=== PATIENT | male | born 1965 | race Caucasian/White ===

== ENCOUNTER → 2020-06-16 | Outpatient (REF) | payer BC ==
[~2020-06-16] MED LIST: AMLO1TAB24 PO; ATOR1TAB19 PO; LISI40TA PO; METF500T13 PO; PANT40TA29 PO; SULF1TAB93 PO; VITA50005 PO
[2020-06-16 16:48] LABS: BLOOD UREA NITROGEN 19 MG/DL (7-18); CALCIUM LEVEL 9.9 MG/DL (8.5-10.1); CARBON DIOXIDE LEVEL 30 MEQ/L (21-32); CHLORIDE LEVEL 102 MEQ/L (98-107); CREATININE FOR GFR 0.89 MG/DL (0.70-1.30); GLOMERULAR FILTRATION RATE > 60.0 (>56); GLUCOSE, FASTING 116 MG/DL (70-100); POTASSIUM SERUM 4.8 MEQ/L (3.5-5.1); SODIUM LEVEL 136 MEQ/L (136-145)
== END ==
LOC: M SFHCCLAY 11:15
PROVIDERS: ATTEND Family Medicine
DX: Z01.818 Encounter for other preprocedural examination (principal); I11.9 Hypertensive heart disease without heart failure

== ENCOUNTER → 2020-06-22 | Outpatient (CLI) | payer BC | LOC: M LABSMTC 10:11 | PROVIDERS: ATTEND Anesthesiology | DX: Z01.812 Encounter for preprocedural laboratory examination (principal); Z20.828 Contact with and (suspected) exposure to other viral communicable diseases | CPT/HCPCS: C9803; U0003 ==

== ENCOUNTER → 2020-06-25 | Outpatient (CLI) | payer BC | LOC: M LABSMTC 10:50 | PROVIDERS: ATTEND Ophthalmology | DX: Z01.818 Encounter for other preprocedural examination (principal) ==

== ENCOUNTER 2020-06-27 06:19 | Day surgery (SDC) | payer BC ==
[~2020-06-27] VITALS: Ht 175.3 cm; Wt 97.5 kg
[~2020-06-27 06:19] MED LIST changes: +ceFAZolin SOD 2 GM in IV 1 EA IV ONE
[2020-06-27] MEDS ORDERED: ceFAZolin 2 GM/D5W 50 ML IV BAG (J0690 PER 500MG) As Ordered ONE (06:41)
[2020-06-27] MEDS ORDERED: LIDOCAINE W/EPINEPHRINE 1% 20ML VIAL As Ordered ONE (07:08)
[2020-06-27] MEDS ORDERED: dexameTHASONE 4 MG/ML 1ML VIAL (J1100 PER 1MG) As Ordered ONE (07:17)
[2020-06-27] MEDS ORDERED: propofoL 200 MG/20 ML VIAL As Ordered ONE (07:17)
[2020-06-27] MEDS ORDERED: LIDOCAINE 2% 100MG/5ML SDV (FOR ANES.) As Ordered ONE (07:17)
[2020-06-27] MEDS ORDERED: fentaNYL 100 MCG/2 ML INJECTION (J3010) As Ordered ONE (07:17)
[2020-06-27] MEDS ORDERED: ONDANSETRON 4MG/2ML VIAL As Ordered ONE (07:17)
[2020-06-27] MEDS ORDERED: MIDAZOLAM INJ 2MG/2ML VIAL (J2250 PER 1MG) As Ordered ONE ×2 (07:17→07:34)
[2020-06-27] MEDS ORDERED: KETAMINE HCL 200 MG/20 ML VIAL As Ordered ONE (07:34)
[2020-06-27] MEDS ORDERED: LR 1,000 ML IV ONE (07:45)
[2020-06-27 09:00] VITALS: BP 159/82
--- NOTE | 2020-07-01 09:33 | RO ---
DATE OF OPERATION: 06/27/2020 PREOPERATIVE DIAGNOSIS: Back cyst x2 and right back lipoma. POSTOPERATIVE DIAGNOSIS: PROCEDURE: Excision of back cyst x2 and lipoma. SURGEON: Nile Emanuel DO ASSIST: None. ANESTHESIA: MAC with 17 mL of local. COMPLICATIONS: None. INDICATIONS FOR PROCEDURE: The patient is a 54-year-old male who presents to my office complaining of pain in the right mid back where he has a large lipoma. He also had a sebaceous cyst in the middle of his back that was inflamed and was infected at the time as well as another sebaceous cyst on the left upper posterior shoulder. I treated him with antibiotics for the infection and had him come in to the operating room to have all three of these removed at the same time. Risks and benefits of the procedure not limited to be including bleeding, infection, damage to surrounding structures, need for further surgery was discussed in detail with the patient, informed consent was obtained and procedure was planned. DESCRIPTION OF PROCEDURE: The patient was brought to the operating room #3. After intravenous sedation he was placed prone on the stretcher, the back was sterilely prepped and draped with Chlorhexidine. Time out was done to confirm patient and procedure. Following that all three lesions had local injected into the skin and subcutaneous tissue on top of them. Starting with the left posterior shoulder there was 2 cm cyst, it was excised with 15-blade scalpel used to make skin incision. Elliptical incision was carried around the cyst itself, the cyst was removed intact. Cautery was used to control hemostasis and then interrupted 3-0 nylon sutures were used to reapproximate the skin edges. That was the first lesion which was a 2 cm sebaceous cyst. Next in the middle of the back another elliptical incision was created with 15- blade scalpel. This incision was about 5 cm in length. Large inflamed 3.5 cm sebaceous cyst was also removed from there. Cautery again was used to control hemostasis and the skin edges were brought back together with 2-0 nylon sutures. For the lipoma a 15-blade scalpel was used to make a 5 cm incision over the top of it. Metzenbaum scissors were used to dissect into the capsule of the lipoma. It was a multilobulated lipoma that came out in multiple large pieces. Overall size was about 7 x 3 cm. Once the lipoma was completely removed the cavity was examined to make sure there was none remaining. Minimal bleeding was from this area. The skin edges were then reapproximated with interrupted 2-0 nylon sutures as well. Once this was completed the back was sterilely cleaned and dried, 4 x 4 tape applied. This ended the procedure. TOY
== END 2020-06-27 09:05 | disposition home or self-care (01) ==
LOC: M SDC 06:19
PROVIDERS: ATTEND Surgery
DX: D17.9 Benign lipomatous neoplasm, unspecified (principal); L72.3 Sebaceous cyst; E11.9 Type 2 diabetes mellitus without complications; I10 Essential (primary) hypertension; E78.5 Hyperlipidemia, unspecified; J44.9 Chronic obstructive pulmonary disease, unspecified; Z87.891 Personal history of nicotine dependence; G47.30 Sleep apnea, unspecified; Z79.899 Other long term (current) drug therapy
CPT/HCPCS: 11402; 11404; 11406; 88304; J0690; J1100; J2250; J2405; J3010

== ENCOUNTER → 2020-07-05 | Outpatient (CLI) | payer BC ==
[~2020-07-05] MED LIST changes: -ceFAZolin SOD 2 GM in IV 1 EA IV ONE
== END ==
LOC: M LABSMTC 09:01
PROVIDERS: ATTEND Anesthesiology
DX: Z01.812 Encounter for preprocedural laboratory examination (principal); Z20.828 Contact with and (suspected) exposure to other viral communicable diseases

== ENCOUNTER 2020-07-10 06:01 | Day surgery (SDC) | payer BC ==
[~2020-07-10] VITALS: Ht 175.3 cm; Wt 101.2 kg
[2020-07-10] MEDS ORDERED: DUOVISC (0.50ML VISCOAT/0.55ML PROVISC) OPHTH KIT As Ordered ONE (06:15)
[2020-07-10] MEDS ORDERED: POVIDONE-IODINE 5% OPHTH PREP SOL 30ML As Ordered ONE (06:15)
[2020-07-10] MEDS ORDERED: CEFUROXIME 1MG/0.1ML INTRACAMERAL INJ As Ordered ONE (06:17)
[2020-07-10] MEDS ORDERED: BSS IRR 500ML/OMIDRIA 4ML IRR BAG (OR ONLY) (J1097 PER ML) As Ordered ONE (06:18)
[2020-07-10] MEDS ORDERED: ACETYLCHOLINE OPHTH SOLN 1% 2ML (MIOCHOL-E) As Ordered ONE (06:22)
[2020-07-10] MEDS ORDERED: PROPARACAINE 0.5% OPHTH SOL 15ML OS ONE (07:00)
[2020-07-10] MEDS ORDERED: PHENYLEPHRINE 2.5% OPHTH SOL 2ML OS ONE (07:00)
[2020-07-10] MEDS ORDERED: OFLOXACIN 0.3 % (OCUFLOX) OPTH SOL 5ML OS ONE (07:00)
[2020-07-10] MEDS ORDERED: TROPICAMIDE 1% OPHTH SOLN 2ML OS ONE (07:00)
[2020-07-10] MEDS ORDERED: fentaNYL 100 MCG/2 ML INJECTION (J3010) As Ordered ONE ×2 (07:14→07:48)
[2020-07-10] MEDS ORDERED: MIDAZOLAM INJ 2MG/2ML VIAL (J2250 PER 1MG) As Ordered ONE ×2 (07:15→07:43)
[2020-07-10 08:15] VITALS: BP 157/78
== END 2020-07-10 08:30 | disposition home or self-care (01) ==
LOC: M SDC 06:01
PROVIDERS: ATTEND Ophthalmology
DX: H25.12 Age-related nuclear cataract, left eye (principal); I10 Essential (primary) hypertension; E11.9 Type 2 diabetes mellitus without complications; E78.5 Hyperlipidemia, unspecified; G47.33 Obstructive sleep apnea (adult) (pediatric); J30.89 Other allergic rhinitis; J44.9 Chronic obstructive pulmonary disease, unspecified; K21.9 Gastro-esophageal reflux disease without esophagitis; K76.0 Fatty (change of) liver, not elsewhere classified; R06.83 Snoring; Z79.84 Long term (current) use of oral hypoglycemic drugs; Z79.899 Other long term (current) drug therapy; Z87.891 Personal history of nicotine dependence; Z96.1 Presence of intraocular lens; Z98.41 Cataract extraction status, right eye
CPT/HCPCS: 66984; J2250; J3010

== ENCOUNTER → 2020-09-12 | Outpatient (REF) | payer BC ==
[~2020-09-12] MED LIST changes: -LISI40TA PO; +LISI40TA4 PO; +TEST1.622
[2020-09-12 11:43] LABS: HEMOGLOBIN A1c 5.8 %
[2020-09-12 11:57] LABS: BLOOD UREA NITROGEN 14 MG/DL (7-18); CALCIUM LEVEL 9.6 MG/DL (8.5-10.1); CARBON DIOXIDE LEVEL 31 MEQ/L (21-32); CHLORIDE LEVEL 104 MEQ/L (98-107); CHOLESTEROL LEVEL 149 MG/DL (<200); CHOLESTEROL RISK RATIO 3.634 (<5); CREATININE FOR GFR 0.86 MG/DL (0.70-1.30); GLOMERULAR FILTRATION RATE > 60.0 (>56); GLUCOSE, FASTING 100 MG/DL (70-100); HDL CHOLESTEROL 41 MG/DL (>40); LDL CHOLESTEROL 87 MG/DL (<100); NON-HDL-C 108 MG/DL; POTASSIUM SERUM 4.8 MEQ/L (3.5-5.1); SODIUM LEVEL 141 MEQ/L (136-145); TRIGLYCERIDES LEVEL 103 MG/DL (<150)
[2020-09-12 12:14] LABS: MALB URINE SIEMENS 18.5 MG/L; MAU/CREAT RATIO 8.5 MCG/MG (0.0-30.0)
[2020-09-13 18:07] LABS: TESTOSTERONE FREE (DIRECT) 13.6 pg/mL (7.2-24.0)
== END ==
LOC: M SFHCCLAY 09:07
PROVIDERS: ATTEND Family Medicine
DX: E11.9 Type 2 diabetes mellitus without complications (principal); I11.9 Hypertensive heart disease without heart failure; E29.1 Testicular hypofunction

== ENCOUNTER → 2020-09-22 | Outpatient (CLI) | payer BC ==
[~2020-09-22] MED LIST changes: +LISI40TA PO; -LISI40TA4 PO
--- NOTE | 2020-09-22 08:51 | REP ---
INDICATION: GERD TECHNIQUE: Real time B-mode dennis scale ultrasound examination using curved array transducer. FINDINGS: Liver measures 21 cm in craniocaudal length and appears diffusely echogenic with decreased through transmission. No focal hepatic lesions are identified. Pancreas is incompletely evaluated due to interposed bowel gas but visualized portions appear normal. Spleen measures 13.0 x 4.4 x 12.2 cm without focal splenic lesion identified. Gallbladder is unremarkable and without obvious gallstones, wall thickening, or pericholecystic fluid. No biliary ductal dilatation is appreciated and the common bile duct measures 5.5 mm diameter. Bilateral kidneys are normal in reniform shape without hydronephrosis. Right kidney measures 11.5 x 5.9 x 4.6 cm. Left kidney measures 12.0 x 6.1 x 6.3 cm. No ascites. IMPRESSION: 1. Hepatosplenomegaly and hepatosteatosis. <Electronically signed by Kyree Cardoza > 09/22/20 [id number]
== END ==
LOC: M RAD 07:38
PROVIDERS: ATTEND Internal Medicine Gastroenterology
DX: K21.00 Gastro-esophageal reflux disease with esophagitis, without bleeding (principal); R16.2 Hepatomegaly with splenomegaly, not elsewhere classified; K76.0 Fatty (change of) liver, not elsewhere classified

== ENCOUNTER → 2020-10-01 | Outpatient (CLI) | payer BC ==
[~2020-10-01] MED LIST changes: -LISI40TA PO; +LISI40TA4 PO
== END ==
LOC: M LABSMTC 12:02
PROVIDERS: ATTEND Anesthesiology
DX: Z20.828 Contact with and (suspected) exposure to other viral communicable diseases (principal)

== ENCOUNTER 2020-10-06 06:46 | Day surgery (SDC) | payer BC ==
[~2020-10-06] VITALS: Ht 175.3 cm; Wt 103.4 kg
[~2020-10-06 06:46] MED LIST changes: +NS 1,000 ML IV ONE
[2020-10-06] MEDS ORDERED: propofoL 200 MG/20 ML VIAL As Ordered ONE ×2 (07:11→07:17)
[2020-10-06] MEDS ORDERED: LIDOCAINE 2% 100MG/5ML SDV (FOR ANES.) As Ordered ONE (07:11)
[2020-10-06] MEDS ORDERED: fentaNYL 100 MCG/2 ML INJECTION (J3010) As Ordered ONE (07:19)
--- NOTE | 2020-10-06 08:11 | ROOR ---
Patient Name: Joaquin Mitchell Procedure Date: 10/06/2020 7:38 AM Date of : 1965 Age: 54 Room: [facility] Gender: Male Note Status: Finalized Procedure: Upper GI endoscopy Indications: Suspected gastro-esophageal reflux disease, Follow-up of duodenal ulcer Providers: Bong Shaffer MD Referring MD: Ivette PRECIADO DO Requesting Provider: Medicines: Monitored Anesthesia Care Complications: No immediate complications. Procedure: Pre-Anesthesia Assessment: - Prior to the procedure, a History and Physical was performed, and patient medications and allergies were reviewed. The patient is competent. The risks and benefits of the procedure and the sedation options and risks were discussed with the patient. All questions were answered and informed consent was obtained. Patient identification and proposed procedure were verified by the physician, the nurse and the anesthesiologist in the procedure room. Mental Status Examination: alert and oriented. Airway Examination: normal oropharyngeal airway and neck mobility. Respiratory Examination: clear to auscultation. CV Examination: normal. Prophylactic Antibiotics: The patient does not require prophylactic antibiotics. Prior Anticoagulants: The patient has taken no previous anticoagulant or antiplatelet agents. ASA Grade Assessment: II - A patient with mild systemic disease. After reviewing the risks and benefits, the patient was deemed in satisfactory condition to undergo the procedure. The anesthesia plan was to use monitored anesthesia care (MAC). Immediately prior to administration of medications, the patient was re-assessed for adequacy to receive sedatives. The heart rate, respiratory rate, oxygen saturations, blood pressure, adequacy of pulmonary ventilation, and response to care were monitored throughout the procedure. The physical status of the patient was re-assessed after the procedure. The Endoscope was introduced through the mouth, and advanced to the second part of duodenum. The upper GI endoscopy was accomplished without difficulty. The patient tolerated the procedure well. Findings: No gross lesions were noted in the entire esophagus. The Z-line was regular and was found 45 cm from the incisors. Diffuse moderate inflammation characterized by congestion (edema), erythema and granularity was found in the gastric body and in the gastric antrum. Biopsies were taken with a cold forceps for histology. Biopsies were taken with a cold forceps for Helicobacter pylori testing. Verification of patient identification for the specimen was done by the physician and nurse using the patient's name, date and medical record number. Estimated blood loss was minimal. Patchy mildly congested mucosa without active bleeding and with no stigmata of bleeding was found in the duodenal bulb. Biopsies were taken with a cold forceps for histology. Impression: - No gross lesions in esophagus. - Z-line regular, 45 cm from the incisors. - Gastritis. Biopsied. - Congested duodenal mucosa. Biopsied. Recommendation: - Patient has a contact number available for emergencies. The signs and symptoms of potential delayed complications were discussed with the patient. Return to normal activities tomorrow. Written discharge instructions were provided to the patient. - High fiber diet. - Continue present medications. - Await pathology results. - Use Protonix (pantoprazole) 40 mg PO daily - to be taken child support agent 1/2 hour before breakfast for 8 weeks. - - Take Thiamine and folic acid vitamin supplements. - Await pathology results. - Telephone GI clinic for pathology results in 2 weeks. - Return to primary care physician. Procedure Code(s): --- Professional --- 87710, Esophagogastroduodenoscopy, flexible, transoral; with biopsy, single or multiple Diagnosis Code(s): --- Professional --- K29.70, Gastritis, unspecified, without bleeding K31.89, Other diseases of stomach and duodenum K26.9, Duodenal ulcer, unspecified as acute or chronic, without hemorrhage or perforation CPT copyright 2019 [employer]. All rights reserved. The codes documented in this report are preliminary and upon periodicals clerk review may be revised to meet current compliance requirements. Bong Shaffer MD Bong Shaffer MD 10/06/2020 8:11:05 AM Electronically signed by Bong Shaffer MD Number of Addenda: 0 Note Initiated On: 10/06/2020 7:38 AM Estimated Blood Loss: Estimated blood loss was minimal.
[2020-10-06 08:14] VITALS: BP 143/83
== END 2020-10-06 08:14 | disposition home or self-care (01) ==
LOC: M OPP 06:46
PROVIDERS: ATTEND Internal Medicine Gastroenterology
DX: K26.9 Duodenal ulcer, unspecified as acute or chronic, without hemorrhage or perforation (principal); K21.00 Gastro-esophageal reflux disease with esophagitis, without bleeding; D13.1 Benign neoplasm of stomach; D13.2 Benign neoplasm of duodenum; K29.70 Gastritis, unspecified, without bleeding; K31.89 Other diseases of stomach and duodenum; I10 Essential (primary) hypertension; E78.5 Hyperlipidemia, unspecified; E11.9 Type 2 diabetes mellitus without complications; R12 Heartburn; M19.90 Unspecified osteoarthritis, unspecified site; J44.9 Chronic obstructive pulmonary disease, unspecified; E55.9 Vitamin D deficiency, unspecified; G47.30 Sleep apnea, unspecified; Z79.84 Long term (current) use of oral hypoglycemic drugs; Z79.899 Other long term (current) drug therapy; Z80.42 Family history of malignant neoplasm of prostate; Z80.8 Family history of malignant neoplasm of other organs or systems
CPT/HCPCS: 43239; 88305; J3010

== ENCOUNTER → 2020-12-24 | Outpatient (REF) | payer BC ==
[~2020-12-24] MED LIST changes: -NS 1,000 ML IV ONE
[2020-12-24 12:41] LABS: BLOOD UREA NITROGEN 23 MG/DL (7-18); CALCIUM LEVEL 9.9 MG/DL (8.5-10.1); CARBON DIOXIDE LEVEL 26 MEQ/L (21-32); CHLORIDE LEVEL 102 MEQ/L (98-107); CREATININE FOR GFR 0.85 MG/DL (0.70-1.30); GLOMERULAR FILTRATION RATE > 60.0 (>56); GLUCOSE, FASTING 161 MG/DL (70-100); POTASSIUM SERUM 4.4 MEQ/L (3.5-5.1); SODIUM LEVEL 134 MEQ/L (136-145)
== END ==
LOC: M SFHCCLAY 08:06
PROVIDERS: ATTEND Family Medicine
DX: I11.9 Hypertensive heart disease without heart failure (principal); E11.9 Type 2 diabetes mellitus without complications

== ENCOUNTER 2022-01-24 20:57 | Emergency (ER) | payer BC ==
[~2022-01-24] VITALS: Ht 175.3 cm; Wt 90.9 kg
[~2022-01-24 20:57] MED LIST changes: +BACTDSTA PO; +ERGO500029 PO; -SULF1TAB93 PO; -TEST1.622; +TEST75GE; -VITA50005 PO
[2022-01-24] MEDS ORDERED: NS 1,000 ML IV ONE (22:05)
[2022-01-24] MEDS ORDERED: MULTIVITAMIN -ADULT INJECTION 10 ML, THIAMINE INJection 100 MG, FOLIC ACID 1 MG in NS 1... IV ONE (22:05)
[2022-01-24 22:30] LABS: BASO # 0.1 10^3/uL (0.0-0.2); BASO % 1.3 % (0.0-1.0); EOS # 0.1 10^3/uL (0.0-0.5); EOS % 1.3 % (0.0-3.0); HEMATOCRIT 41.6 % (42.0-52.0); HEMOGLOBIN 14.1 g/dl (13.5-17.5); LYMPH # 1.3 10^3/uL (1.5-5.0); LYMPH % 32.9 % (24.0-44.0); MEAN CORPUSCULAR HEMOGLOBIN 32.4 pg (27.0-33.0); MEAN CORPUSCULAR HGB CONC 33.9 g/dl (32.0-36.5); MEAN CORPUSCULAR VOLUME 95.6 fl (80.0-96.0); MONO # 0.5 10^3/uL (0.0-0.8); MONO % 13.6 % (2.0-8.0); NEUTROPHILS # 1.9 10^3/uL (1.5-8.5); NEUTROPHILS % 50.6 % (36.0-66.0); PLATELET COUNT, AUTOMATED 186 10^3/uL (150-450); RED BLOOD COUNT 4.35 10^6/uL (4.30-6.10); WHITE BLOOD COUNT 3.8 10^3/uL (4.0-10.0)
[2022-01-24 23:06] LABS: BLOOD UREA NITROGEN 16 MG/DL (7-18); CALCIUM LEVEL 7.8 MG/DL (8.5-10.1); CARBON DIOXIDE LEVEL 22 MEQ/L (21-32); CHLORIDE LEVEL 108 MEQ/L (98-107); CREATININE FOR GFR 0.63 MG/DL (0.70-1.30); ETHYL ALCOHOL (ETHANOL) < 0.003 % (0.000-0.010); GLOMERULAR FILTRATION RATE > 60.0 (>56); GLUCOSE, FASTING 185 MG/DL (70-100); MAGNESIUM LEVEL 1.3 MG/DL (1.8-2.4); POTASSIUM SERUM 3.7 MEQ/L (3.5-5.1); SODIUM LEVEL 141 MEQ/L (136-145)
[2022-01-24 23:45] VITALS: BP 103/61
[2022-01-25 00:12] LABS: BLOOD UREA NITROGEN 17 MG/DL (7-18); CALCIUM LEVEL 8.4 MG/DL (8.5-10.1); CARBON DIOXIDE LEVEL 25 MEQ/L (21-32); CHLORIDE LEVEL 106 MEQ/L (98-107); CREATININE FOR GFR 0.75 MG/DL (0.70-1.30); GLOMERULAR FILTRATION RATE > 60.0 (>56); GLUCOSE, FASTING 187 MG/DL (70-100); MAGNESIUM LEVEL 1.3 MG/DL (1.8-2.4); POTASSIUM SERUM 4.2 MEQ/L (3.5-5.1); SODIUM LEVEL 139 MEQ/L (136-145)
[2022-01-25] MEDS ORDERED: BACITRACIN OINTMENT 30GM TUBE TOP ONE (00:30)
[2022-01-25] MEDS ORDERED: MAGN400T2 PO (00:33)
[2022-01-25] MEDS ORDERED: MAGNESIUM OXIDE 400MG TAB (MAG-OX) PO ONE (00:35)
== END 2022-01-25 01:03 | disposition home or self-care (01) ==
LOC: M ED 20:57
DX: S00.81XA Abrasion of other part of head, initial encounter (principal); S02.2XXA Fracture of nasal bones, initial encounter for closed fracture; M25.78 Osteophyte, vertebrae; M25.562 Pain in left knee; W01.0XXA Fall on same level from slipping, tripping and stumbling without subsequent striking against object, initial encounter; Y92.410 Unspecified street and highway as the place of occurrence of the external cause; Y93.9 Activity, unspecified; Y99.9 Unspecified external cause status; F10.20 Alcohol dependence, uncomplicated; Z79.899 Other long term (current) drug therapy
CPT/HCPCS: 70450; 70486; 71045; 72125; 73564; 80048; 82077; 83735; 85025; 93005; 96361; 96365; 99284; J3411

== ENCOUNTER → 2022-03-01 | Outpatient (CLI) | payer BC ==
[~2022-03-01] MED LIST changes: +MAGN400T2 PO
== END ==
LOC: M RAD 13:51
PROVIDERS: ATTEND Family Medicine
DX: Z12.2 Encounter for screening for malignant neoplasm of respiratory organs (principal); F17.211 Nicotine dependence, cigarettes, in remission

== ENCOUNTER → 2022-07-27 | Outpatient (REF) | payer BC ==
[2022-07-27 12:18] LABS: BLOOD UREA NITROGEN 23 MG/DL (9-23); CALCIUM LEVEL 8.9 MG/DL (8.5-10.1); CARBON DIOXIDE LEVEL 29 MMOL/L (20-31); CHLORIDE LEVEL 103 MMOL/L (98-107); CHOLESTEROL LEVEL 136 MG/DL (<200); CHOLESTEROL RISK RATIO 2.26 (<5); CREATININE FOR GFR 0.76 MG/DL (0.70-1.30); GLOMERULAR FILTRATION RATE > 60.0 (>56); GLUCOSE, FASTING 98 MG/DL (60-100); LDL CHOLESTEROL 51.2 MG/DL (<100); NON-HDL-C 76 MG/DL; POTASSIUM SERUM 4.2 MMOL/L (3.5-5.1); SODIUM LEVEL 143 MMOL/L (136-145); TOTAL 25(OH) VITAMIN D 64.9 NG/ML (20.0-100.0); TRIGLYCERIDES LEVEL 124 MG/DL (<150)
[2022-07-27 12:37] LABS: HEMOGLOBIN A1c 5.6 % (4.0-6.0)
[2022-07-27 12:39] LABS: CREATININE, URINE 174.3 MG/DL
[2022-07-28 10:08] LABS: TESTOSTERONE FREE (DIRECT) 11.5 pg/mL (7.2-24.0)
== END ==
LOC: M SFHCCLAY 07:15
PROVIDERS: ATTEND Nurse Practitioner Family
DX: Z00.00 Encounter for general adult medical examination without abnormal findings (principal); E11.9 Type 2 diabetes mellitus without complications; I11.9 Hypertensive heart disease without heart failure; E78.5 Hyperlipidemia, unspecified; E55.9 Vitamin D deficiency, unspecified; E29.1 Testicular hypofunction

== ENCOUNTER → 2022-12-22 | Outpatient (REF) | payer BC ==
[2022-12-22 12:01] LABS: TESTOSTERONE 912 NG/DL (241-827); TOTAL 25(OH) VITAMIN D 56.1 NG/ML (20.0-100.0)
[2022-12-22 12:02] LABS: ALBUMIN 3.8 G/DL (3.2-5.2); ALKALINE PHOSPHATASE 101 U/L (46-116); ALT/SGPT 63 U/L (7.0-40); AST/SGOT 80 U/L (<34); BILIRUBIN,TOTAL 0.4 MG/DL (0.3-1.2); BLOOD UREA NITROGEN 16 MG/DL (9-23); CALCIUM LEVEL 9.5 MG/DL (8.5-10.1); CARBON DIOXIDE LEVEL 26 MMOL/L (20-31); CHLORIDE LEVEL 103 MMOL/L (98-107); CHOLESTEROL LEVEL 127 MG/DL (<200); CHOLESTEROL RISK RATIO 2.21 (<5); CREATININE FOR GFR 0.89 MG/DL (0.70-1.30); GLOMERULAR FILTRATION RATE > 60.0 (>56); GLUCOSE, FASTING 91 MG/DL (60-100); HDL CHOLESTEROL 57.4 MG/DL (>40); LDL CHOLESTEROL 44.4 MG/DL (<100); NON-HDL-C 69.6 MG/DL; POTASSIUM SERUM 4.7 MMOL/L (3.5-5.1); SODIUM LEVEL 141 MMOL/L (136-145); TOTAL PROTEIN 6.8 G/DL (5.7-8.2); TRIGLYCERIDES LEVEL 126 MG/DL (<150)
[2022-12-22 13:14] LABS: HEMOGLOBIN A1c 5.6 % (4.0-6.0)
== END ==
LOC: M SFHCCLAY 07:29
PROVIDERS: ATTEND Nurse Practitioner Family
DX: I10 Essential (primary) hypertension (principal); E11.9 Type 2 diabetes mellitus without complications; E78.5 Hyperlipidemia, unspecified; E55.9 Vitamin D deficiency, unspecified; E29.1 Testicular hypofunction; Z12.5 Encounter for screening for malignant neoplasm of prostate

== ENCOUNTER → 2023-01-05 | Outpatient (CLI) | payer BC | LOC: M RAD 11:45 | PROVIDERS: ATTEND Nurse Practitioner Family | DX: L40.0 Psoriasis vulgaris (principal) ==

== ENCOUNTER → 2023-04-11 | Outpatient (CLI) | payer BC | LOC: M RAD 12:25 | PROVIDERS: ATTEND Nurse Practitioner Family | DX: F17.210 Nicotine dependence, cigarettes, uncomplicated (principal) ==

== ENCOUNTER → 2023-09-06 | Outpatient (CLI) | payer BC | LOC: M RAD 06:51 | PROVIDERS: ATTEND Nurse Practitioner Family | DX: K76.0 Fatty (change of) liver, not elsewhere classified (principal); K82.8 Other specified diseases of gallbladder ==

== ENCOUNTER → 2023-12-21 | Outpatient (REF) | payer BC ==
[2023-12-21 17:18] LABS: ALBUMIN 3.8 G/DL (3.2-5.2); ALKALINE PHOSPHATASE 111 U/L (46-116); ALT/SGPT 56 U/L (7.0-40); AST/SGOT 75 U/L (<34); BILIRUBIN,TOTAL 0.7 MG/DL (0.3-1.2); BLOOD UREA NITROGEN 18 MG/DL (9-23); CALCIUM LEVEL 9.6 MG/DL (8.5-10.1); CARBON DIOXIDE LEVEL 28 MMOL/L (20-31); CHLORIDE LEVEL 103 MMOL/L (98-107); CREATININE FOR GFR 0.79 MG/DL (0.70-1.30); GLOMERULAR FILTRATION RATE > 60.0 (>56); GLUCOSE, FASTING 105 MG/DL (60-100); POTASSIUM SERUM 5.3 MMOL/L (3.5-5.1); SODIUM LEVEL 138 MMOL/L (136-145); TOTAL PROTEIN 7.1 G/DL (5.7-8.2)
[2023-12-21 17:42] LABS: BASO # 0.1 10^3/uL (0.0-0.2); EOS # 0.1 10^3/uL (0.0-0.5); EOS % 1.4 % (0.0-3.0); HEMATOCRIT 43.6 % (42.0-52.0); HEMOGLOBIN 14.3 g/dl (13.5-17.5); LYMPH # 1.2 10^3/uL (1.5-5.0); LYMPH % 20.8 % (24.0-44.0); MEAN CORPUSCULAR HEMOGLOBIN 33.2 pg (27.0-33.0); MEAN CORPUSCULAR HGB CONC 32.8 g/dl (32.0-36.5); MEAN CORPUSCULAR VOLUME 101.2 fl (80.0-96.0); MONO # 0.6 10^3/uL (0.0-0.8); MONO % 10.6 % (2.0-8.0); NEUTROPHILS # 3.8 10^3/uL (1.5-8.5); PLATELET COUNT, AUTOMATED 187 10^3/uL (150-450); RED BLOOD COUNT 4.31 10^6/uL (4.30-6.10); WHITE BLOOD COUNT 5.8 10^3/uL (4.0-10.0)
[2023-12-21 17:46] LABS: HEMOGLOBIN A1c 5.6 % (4.0-6.0)
== END ==
LOC: M SFHCCLAY 10:47
PROVIDERS: ATTEND Nurse Practitioner Family
DX: R20.2 Paresthesia of skin (principal); E11.9 Type 2 diabetes mellitus without complications; I10 Essential (primary) hypertension; G62.9 Polyneuropathy, unspecified

== ENCOUNTER → 2023-12-22 | Outpatient (REF) | payer BC | LOC: M LAB REF 09:53 | PROVIDERS: ATTEND Nurse Practitioner Family | DX: R19.7 Diarrhea, unspecified (principal) ==

== ENCOUNTER → 2024-01-12 | Outpatient (REF) | payer BC ==
[~2024-01-12] MED LIST changes: +CYAN500T14 PO; +RISA150S2 SQ; -TEST75GE; +TEST75GE TOP; +VITA50TA43 PO; +vitamin b1 PO
== END ==
LOC: M SFHCCLAY 10:46
PROVIDERS: ATTEND Nurse Practitioner Family
DX: L40.9 Psoriasis, unspecified (principal); K76.0 Fatty (change of) liver, not elsewhere classified; E29.1 Testicular hypofunction; F17.211 Nicotine dependence, cigarettes, in remission; I11.9 Hypertensive heart disease without heart failure; Z12.5 Encounter for screening for malignant neoplasm of prostate

== ENCOUNTER → 2024-01-12 | Outpatient (CLI) | payer BC | LOC: M CLY 10:19 | PROVIDERS: ATTEND Nurse Practitioner Family | DX: L40.0 Psoriasis vulgaris (principal) ==

== ENCOUNTER → 2024-01-12 | Outpatient (REF) | payer BC ==
[2024-01-12 18:38] LABS: BASO # 0.1 10^3/uL (0.0-0.2); BASO % 0.9 % (0.0-1.0); EOS # 0.1 10^3/uL (0.0-0.5); HEMATOCRIT 42.9 % (42.0-52.0); HEMOGLOBIN 14.2 g/dl (13.5-17.5); LYMPH # 1.4 10^3/uL (1.5-5.0); LYMPH % 20.8 % (24.0-44.0); MEAN CORPUSCULAR HEMOGLOBIN 33.5 pg (27.0-33.0); MEAN CORPUSCULAR HGB CONC 33.1 g/dl (32.0-36.5); MEAN CORPUSCULAR VOLUME 101.2 fl (80.0-96.0); MONO # 0.6 10^3/uL (0.0-0.8); MONO % 9.1 % (2.0-8.0); NEUTROPHILS # 4.6 10^3/uL (1.5-8.5); NEUTROPHILS % 67.9 % (36.0-66.0); PLATELET COUNT, AUTOMATED 207 10^3/uL (150-450); RED BLOOD COUNT 4.24 10^6/uL (4.30-6.10); WHITE BLOOD COUNT 6.7 10^3/uL (4.0-10.0)
[2024-01-12 19:12] LABS: ALBUMIN 3.8 G/DL (3.2-5.2); ALKALINE PHOSPHATASE 108 U/L (46-116); ALT/SGPT 85 U/L (7.0-40); AST/SGOT 89 U/L (<34); BILIRUBIN,DIRECT 0.3 MG/DL (<0.4); BILIRUBIN,TOTAL 0.7 MG/DL (0.3-1.2); BLOOD UREA NITROGEN 18 MG/DL (9-23); CALCIUM LEVEL 9.6 MG/DL (8.5-10.1); CARBON DIOXIDE LEVEL 28 MMOL/L (20-31); CHLORIDE LEVEL 105 MMOL/L (98-107); CREATININE FOR GFR 0.78 MG/DL (0.70-1.30); GLOMERULAR FILTRATION RATE > 60.0 (>56); GLUCOSE, FASTING 109 MG/DL (60-100); PHOSPHORUS LEVEL 3.2 MG/DL (2.5-4.9); POTASSIUM SERUM 5.2 MMOL/L (3.5-5.1); SODIUM LEVEL 141 MMOL/L (136-145); TOTAL PROTEIN 7.2 G/DL (5.7-8.2)
[2024-01-12 19:13] LABS: HEPATITIS B SURFACE ANTIBODY NEGATIVE (POSITIVE)
[2024-01-12 19:38] LABS: HIV 1&2 SCREEN NEGATIVE (NEGATIVE)
[2024-01-12 19:46] LABS: HEPATITIS C VIRUS ABY INDEX < 0.02 INDEX (<0.8)
== END ==
LOC: M LABDRAWC 17:07
PROVIDERS: ATTEND Nurse Practitioner Family
DX: L40.0 Psoriasis vulgaris (principal)

== ENCOUNTER → 2024-01-13 | Outpatient (CLI) | payer BC | LOC: M RAD 11:32 | PROVIDERS: ATTEND Nurse Practitioner Family | DX: R19.7 Diarrhea, unspecified (principal) | CPT/HCPCS: 78227; A9537 ==

== ENCOUNTER 2024-01-17 09:09 | Day surgery (SDC) | payer BC ==
[~2024-01-17] VITALS: Ht 175.3 cm; Wt 93.9 kg
[~2024-01-17 09:09] MED LIST changes: +NS 1,000 ML IV ONE
[2024-01-17] MEDS ORDERED: propofoL 200 MG/20 ML VIAL As Ordered ONE (10:20)
[2024-01-17] MEDS ORDERED: propofoL 500 MG/50 ML VIAL As Ordered ONE (10:20)
[2024-01-17 10:58] VITALS: TEMP 98
[2024-01-17 11:15] VITALS: BP 161/77; O2SAT 98
== END 2024-01-17 11:26 | disposition home or self-care (01) ==
LOC: M OPP 09:09
PROVIDERS: ATTEND Internal Medicine Gastroenterology
DX: Z12.11 Encounter for screening for malignant neoplasm of colon (principal); Z86.010 Personal history of colon polyps; D12.6 Benign neoplasm of colon, unspecified; K64.4 Residual hemorrhoidal skin tags; K64.8 Other hemorrhoids; E11.9 Type 2 diabetes mellitus without complications; G47.30 Sleep apnea, unspecified; I10 Essential (primary) hypertension; J44.9 Chronic obstructive pulmonary disease, unspecified; K76.0 Fatty (change of) liver, not elsewhere classified; Z87.891 Personal history of nicotine dependence; Z79.02 Long term (current) use of antithrombotics/antiplatelets; Z79.51 Long term (current) use of inhaled steroids; Z79.620 Long term (current) use of immunosuppressive biologic; Z79.84 Long term (current) use of oral hypoglycemic drugs; Z79.899 Other long term (current) drug therapy

== ENCOUNTER → 2024-02-07 | Outpatient (REF) | payer BC ==
[~2024-02-07] MED LIST changes: -NS 1,000 ML IV ONE
== END ==
LOC: M LABDRAWC 11:48
PROVIDERS: ATTEND Nurse Practitioner Family
DX: K86.81 Exocrine pancreatic insufficiency (principal)

== ENCOUNTER → 2024-02-10 | Outpatient (CLI) | payer BC ==
[~2024-02-10] MED LIST changes: +GASTROGRAFIN SOLUTION 30ML As Ordered ONE; +ISOVUE-370 76% 100ML VIAL As Ordered ONE
== END ==
LOC: M RAD 10:47
PROVIDERS: ATTEND Nurse Practitioner Family
DX: K86.81 Exocrine pancreatic insufficiency (principal); R59.0 Localized enlarged lymph nodes; K76.0 Fatty (change of) liver, not elsewhere classified; K80.20 Calculus of gallbladder without cholecystitis without obstruction
CPT/HCPCS: 74170; Q9963; Q9967

== ENCOUNTER → 2024-03-28 | Outpatient (REF) | payer BC ==
[~2024-03-28] MED LIST changes: -GASTROGRAFIN SOLUTION 30ML As Ordered ONE; -ISOVUE-370 76% 100ML VIAL As Ordered ONE
[2024-03-28 12:06] LABS: ALBUMIN 3.8 G/DL (3.2-5.2); ALKALINE PHOSPHATASE 88 U/L (46-116); ALT/SGPT 101 U/L (7.0-40); AST/SGOT 109 U/L (<34); BILIRUBIN,DIRECT 0.3 MG/DL (<0.4); BILIRUBIN,TOTAL 0.6 MG/DL (0.3-1.2); IRON (FE) 120 UG/DL (65-175); TOTAL PROTEIN 7.4 G/DL (5.7-8.2)
[2024-03-28 12:08] LABS: FERRITIN 370.8 NG/ML (10.5-307.3)
[2024-03-28 12:19] LABS: HEPATITIS B SURFACE ANTIGEN NEGATIVE (NEGATIVE)
[2024-03-28 12:41] LABS: HEPATITIS B CORE ANTIBODY IGM NEGATIVE (NEGATIVE); HEPATITIS C VIRUS ABY INDEX < 0.02 INDEX (<0.8)
[2024-03-29 12:32] LABS: ANA SCREEN, IFA NEGATIVE (NEGATIVE)
== END ==
LOC: M LABDRAWC 10:53
PROVIDERS: ATTEND Nurse Practitioner Family
DX: R93.3 Abnormal findings on diagnostic imaging of other parts of digestive tract (principal)

== ENCOUNTER → 2024-04-13 | Outpatient (CLI) | payer BC ==
[2024-04-13 19:37] LABS: BLOOD UREA NITROGEN 22 MG/DL (9-23); CREATININE FOR GFR 1.13 MG/DL (0.70-1.30); GLOMERULAR FILTRATION RATE > 60.0 (>56)
== END ==
LOC: M LRY 09:06
PROVIDERS: ATTEND Nurse Practitioner Family
DX: K86.81 Exocrine pancreatic insufficiency (principal)

== ENCOUNTER → 2024-04-19 | Outpatient (CLI) | payer BC ==
[~2024-04-19] MED LIST changes: +ISOVUE-370 76% 100ML VIAL As Ordered ONE
== END ==
LOC: M RAD 15:20
PROVIDERS: ATTEND Nurse Practitioner Family
DX: R91.8 Other nonspecific abnormal finding of lung field (principal)

== ENCOUNTER → 2024-07-13 | Outpatient (REF) | payer BC ==
[~2024-07-13] MED LIST changes: -ISOVUE-370 76% 100ML VIAL As Ordered ONE
== END ==
LOC: M SFHCCLAY 10:52
PROVIDERS: ATTEND Nurse Practitioner Family
DX: R20.2 Paresthesia of skin (principal); E11.9 Type 2 diabetes mellitus without complications; I10 Essential (primary) hypertension; G62.9 Polyneuropathy, unspecified; L40.9 Psoriasis, unspecified; K76.0 Fatty (change of) liver, not elsewhere classified; E29.1 Testicular hypofunction; F17.211 Nicotine dependence, cigarettes, in remission; I11.9 Hypertensive heart disease without heart failure

== ENCOUNTER → 2024-08-16 | Outpatient (CLI) | payer BC | LOC: M WUC 13:50 | PROVIDERS: ATTEND Student in an Organized Health Care Education/Training Program | DX: R06.02 Shortness of breath (principal) ==

== ENCOUNTER 2024-08-21 10:26 | Inpatient (IN) | payer BC ==
[~2024-08-21] VITALS: Ht 175.3 cm; Wt 89.0 kg
[2024-08-21 12:12] LABS: BASO # 0.1 10^3/uL (0.0-0.2); BASO % 0.4 % (0.0-1.0); EOS % 0.1 % (0.0-3.0); HEMATOCRIT 37.9 % (42.0-52.0); HEMOGLOBIN 13.5 g/dl (13.5-17.5); LYMPH # 0.4 10^3/uL (1.5-5.0); LYMPH % 2.8 % (24.0-44.0); MEAN CORPUSCULAR HEMOGLOBIN 34.8 pg (27.0-33.0); MEAN CORPUSCULAR HGB CONC 35.6 g/dl (32.0-36.5); MEAN CORPUSCULAR VOLUME 97.7 fl (80.0-96.0); MONO # 0.9 10^3/uL (0.0-0.8); MONO % 6.8 % (2.0-8.0); NEUTROPHILS % 87.6 % (36.0-66.0); PLATELET COUNT, AUTOMATED 315 10^3/uL (150-450); RED BLOOD COUNT 3.88 10^6/uL (4.30-6.10); WHITE BLOOD COUNT 12.5 10^3/uL (4.0-10.0)
[2024-08-21 12:43] LABS: ALKALINE PHOSPHATASE 91 U/L (40-129); ALT/SGPT 157 U/L (7.0-40); AST/SGOT 113 U/L (<34); BILIRUBIN,DIRECT 0.4 MG/DL (<0.4); BILIRUBIN,TOTAL 0.8 MG/DL (0.3-1.2); BLOOD UREA NITROGEN 17 MG/DL (9-23); CALCIUM LEVEL 10.7 MG/DL (8.5-10.1); CARBON DIOXIDE LEVEL 28 MMOL/L (20-31); CHLORIDE LEVEL 100 MMOL/L (98-107); CREATININE FOR GFR 0.85 MG/DL (0.70-1.30); GLOMERULAR FILTRATION RATE > 60.0 (>56); GLUCOSE, FASTING 205 MG/DL (60-100); POTASSIUM SERUM 4.2 MMOL/L (3.5-5.1); SODIUM LEVEL 137 MMOL/L (136-145); TOTAL PROTEIN 7.1 G/DL (5.7-8.2)
[2024-08-21 12:55] VITALS: O2SAT 88
[2024-08-21] MEDS: MAG SULF 1GM/100ML (MAG RUN) 1 GM in IV 1 EA IV ONE (13:36)
[2024-08-21 13:50] LABS: CK-MB VALUE MASS < 1.0 NG/ML (<3.6)
[2024-08-21 13:51] LABS: CPK CREATINE PHOSPHOKINASE 43 U/L (46-171); MB/CK RELATIVE INDEX 2.32 (< OR =4)
[2024-08-21] MEDS: IPRATROPIUM 0.5MG/ALBUTEROL 2.5MG INH SOL UD 3ML (DUONEB) NEB ONE (13:51)
[2024-08-21] MEDS ORDERED: ISOVUE-370 76% 100ML VIAL As Ordered ONE (14:09)
[2024-08-21] MEDS: LevoFLOXacin IV 750 MG in IV 1 EA IV ONE (15:25)
[2024-08-21] MEDS ORDERED: PRED10TA2 PO (16:03)
[2024-08-21] MEDS ORDERED: GABA-1172 PO (16:03)
[2024-08-21] MEDS ORDERED: METF-838 PO (16:03)
[2024-08-21] MEDS ORDERED: AMOX875T2 PO (16:03)
[2024-08-21] MEDS ORDERED: HOME MED LIST COMPLETE! XX SCH (16:05)
[2024-08-21] MEDS ORDERED: GLUCAGON INJ 1MG VIAL SC PRN (16:15)
[2024-08-21] MEDS ORDERED: GLUCOSE 4 GM CHEW PO PRN (16:15)
[2024-08-21] MEDS ORDERED: DEXTROSE 50% 50ML SYRINGE IV PRN (16:15)
[2024-08-21 16:42] LABS: PROCALCITONIN 0.25 ng/ml
[2024-08-21 17:00] VITALS: BP 170/88; TEMP 98.2; O2SAT 96
[2024-08-21] MEDS: cefTRIAXone SOD 1 GM in DEXTROSE 5% (D5W) ADV/MINI-BAG 50 ML IV ONE (17:41)
[2024-08-21] MEDS: INSULIN LISPRO (NovoLOG) PER UNIT SC SCH ×2 (17:41→21:00)
[2024-08-21] MEDS: lisinopriL 40MG TAB PO ONE (17:57)
[2024-08-21 18:20] VITALS: O2SAT 90
[2024-08-21 18:53] VITALS: BP 122/88
[2024-08-21] MEDS: SODIUM CHLORIDE HYPERTONIC 3% 4ML NEB SOL INH SCH (19:06)
[2024-08-21 20:00] VITALS: BP 130/87; TEMP 98.1; O2SAT 91
[2024-08-21] MEDS ORDERED: VANCOMYCIN HCL IV ONE (20:20)
[2024-08-21] MEDS ORDERED: VANCOMYCIN HCL 750 MG, VIAL MATE ADAPTER 1 EACH in NS 250 ML IV SCH (20:20)
[2024-08-21] MEDS ORDERED: FLUID PLACE HOLDER IV ONE (20:20)
[2024-08-21] MEDS: VANCOMYCIN 1,750 MG/350 ML IV BAG *LOAD IV ONE (21:10)
[2024-08-21] MEDS: GABAPENTIN 300 MG CAP PO SCH (21:10)
[2024-08-21] MEDS: guaiFENesin ER TABLET 600 MG TAB PO SCH (21:11)
[2024-08-21] MEDS: MUPIROCIN 2% OINT 22 GM TUBE TOP SCH (21:11)
[2024-08-22] VITALS (7 sets, daily range): BP systolic 140–187; BP diastolic 74–97; TEMP 97.2–98.2; O2SAT 90–97
[2024-08-22] MEDS: VANCOMYCIN HCL 1,000 MG, VIAL MATE ADAPTER 1 EACH in NS 250 ML IV SCH (05:29)
[2024-08-22] MEDS: ACETAMINOPHEN 325 MG TAB PO PRN (06:01)
[2024-08-22 06:37] LABS: HEMATOCRIT 37.5 % (42.0-52.0); MEAN CORPUSCULAR HEMOGLOBIN 34.1 pg (27.0-33.0); MEAN CORPUSCULAR HGB CONC 34.7 g/dl (32.0-36.5); MEAN CORPUSCULAR VOLUME 98.4 fl (80.0-96.0); PLATELET COUNT, AUTOMATED 265 10^3/uL (150-450); RED BLOOD COUNT 3.81 10^6/uL (4.30-6.10)
[2024-08-22 06:54] LABS: BLOOD UREA NITROGEN 20 MG/DL (9-23); CALCIUM LEVEL 9.7 MG/DL (8.5-10.1); CARBON DIOXIDE LEVEL 31 MMOL/L (20-31); CHLORIDE LEVEL 101 MMOL/L (98-107); CREATININE FOR GFR 0.88 MG/DL (0.70-1.30); GLOMERULAR FILTRATION RATE > 60.0 (>56); GLUCOSE, FASTING 106 MG/DL (60-100); POTASSIUM SERUM 3.9 MMOL/L (3.5-5.1); SODIUM LEVEL 138 MMOL/L (136-145)
[2024-08-22] MEDS ORDERED: AZITHROMYCIN 250MG TABLET PO SCH (09:00)
[2024-08-22] MEDS: predniSONE 10MG TAB PO SCH (09:04)
[2024-08-22] MEDS: ATORVASTATIN 10 MG TAB PO SCH (09:05)
[2024-08-22] MEDS: CYANOCOBALAMIN 500 MCG TAB PO SCH (09:05)
[2024-08-22] MEDS: lisinopriL 40MG TAB PO SCH (09:05)
[2024-08-22] MEDS: PANTOPRAZOLE 40MG TAB (PROTONIX) PO SCH (09:05)
[2024-08-22] MEDS: PYRIDOXINE 50 MG TAB PO SCH (09:05)
[2024-08-22] MEDS: cefTRIAXone SOD 1 GM in DEXTROSE 5% (D5W) ADV/MINI-BAG 50 ML IV SCH (17:15)
[2024-08-22] MEDS: amLODIPine 5 MG TAB PO ONE (18:55)
[2024-08-22] MEDS: SYMBICORT 80/4.5MCG INHALER 6GM INH SCH (20:12)
[2024-08-22] MEDS: ENOXAPARIN 40MG/0.4ML SYRINGE (J1650 PER 10MG) SC SCH (20:57)
[2024-08-23] VITALS: BP 175/82; TEMP 98.1; O2SAT 93
[2024-08-23] MEDS: VANCOMYCIN HCL 1,000 MG, VIAL MATE ADAPTER 1 EACH in NS 250 ML IV SCH (01:55)
[2024-08-23 04:00] VITALS: BP 149/79; TEMP 98.1; O2SAT 96
[2024-08-23 07:42] LABS: BASO % 0.3 % (0.0-1.0); EOS % 0.4 % (0.0-3.0); HEMATOCRIT 36.2 % (42.0-52.0); HEMOGLOBIN 12.7 g/dl (13.5-17.5); LYMPH # 1.1 10^3/uL (1.5-5.0); LYMPH % 10.6 % (24.0-44.0); MEAN CORPUSCULAR HEMOGLOBIN 34.5 pg (27.0-33.0); MEAN CORPUSCULAR HGB CONC 35.1 g/dl (32.0-36.5); MEAN CORPUSCULAR VOLUME 98.4 fl (80.0-96.0); MONO % 9.6 % (2.0-8.0); NEUTROPHILS # 8.2 10^3/uL (1.5-8.5); NEUTROPHILS % 77.7 % (36.0-66.0); PLATELET COUNT, AUTOMATED 212 10^3/uL (150-450); RED BLOOD COUNT 3.68 10^6/uL (4.30-6.10); WHITE BLOOD COUNT 10.6 10^3/uL (4.0-10.0)
[2024-08-23] MEDS: amLODIPine 5 MG TAB PO SCH (07:59)
[2024-08-23 08:00] VITALS: BP 157/90; TEMP 98.1; O2SAT 90
[2024-08-23 08:01] VITALS: O2SAT 88
[2024-08-23 08:13] LABS: BLOOD UREA NITROGEN 20 MG/DL (9-23); CALCIUM LEVEL 9.7 MG/DL (8.5-10.1); CARBON DIOXIDE LEVEL 29 MMOL/L (20-31); CHLORIDE LEVEL 101 MMOL/L (98-107); CREATININE FOR GFR 0.78 MG/DL (0.70-1.30); GLOMERULAR FILTRATION RATE > 60.0 (>56); GLUCOSE, FASTING 117 MG/DL (60-100); POTASSIUM SERUM 3.8 MMOL/L (3.5-5.1); SODIUM LEVEL 139 MMOL/L (136-145)
[2024-08-23 08:51] VITALS: O2SAT 85
[2024-08-23 09:02] VITALS: O2SAT 91
[2024-08-23] MEDS: CEFDINIR 300 MG CAP (OMNICEF) PO SCH (12:16)
[2024-08-23] MEDS: LINEZOLID 600MG TABLET (ZYVOX) PO SCH (12:16)
[2024-08-24 03:40] VITALS: BP 156/74; TEMP 98.1; O2SAT 94
[2024-08-24 06:08] LABS: HEMATOCRIT 36.5 % (42.0-52.0); HEMOGLOBIN 12.8 g/dl (13.5-17.5); MEAN CORPUSCULAR HEMOGLOBIN 34.2 pg (27.0-33.0); MEAN CORPUSCULAR HGB CONC 35.1 g/dl (32.0-36.5); MEAN CORPUSCULAR VOLUME 97.6 fl (80.0-96.0); PLATELET COUNT, AUTOMATED 199 10^3/uL (150-450); RED BLOOD COUNT 3.74 10^6/uL (4.30-6.10); WHITE BLOOD COUNT 11.5 10^3/uL (4.0-10.0)
[2024-08-24 08:23] VITALS: BP 158/80
[2024-08-24] MEDS ORDERED: VENTAER INH (11:49)
[2024-08-24] MEDS ORDERED: NORV5TAB PO (11:49)
[2024-08-24] MEDS ORDERED: ZYVO1TAB PO (11:49)
[2024-08-24] MEDS ORDERED: MUCI120T PO (11:49)
[2024-08-24] MEDS ORDERED: ANOR1AER PO (11:49)
[2024-08-25 18:44] LABS: URINE STREP PNEUMONIAE ANTIGEN NOT DETECTED (NOT DETECT)
== END 2024-08-24 14:57 | disposition home or self-care (01) | DRG 137 ==
LOC: M ED 10:26 → M ED INP 15:44 → EEVIPCON 15:44 → M MSPAV 17:06
PROVIDERS: ADMIT Internal Medicine; ATTEND Internal Medicine
DX: J15.212 Pneumonia due to Methicillin resistant Staphylococcus aureus (principal); J44.0 Chronic obstructive pulmonary disease with (acute) lower respiratory infection; I10 Essential (primary) hypertension; E11.9 Type 2 diabetes mellitus without complications; E78.5 Hyperlipidemia, unspecified; E53.8 Deficiency of other specified B group vitamins; J44.1 Chronic obstructive pulmonary disease with (acute) exacerbation; K21.9 Gastro-esophageal reflux disease without esophagitis; R07.81 Pleurodynia; Z79.84 Long term (current) use of oral hypoglycemic drugs; Z79.899 Other long term (current) drug therapy

== ENCOUNTER → 2024-08-31 | Outpatient (CLI) | payer BC ==
[~2024-08-31] MED LIST changes: +AMOX875T2 PO; +ANOR1AER PO; +GABA-1172 PO; +METF-838 PO; +MUCI120T PO; +NORV5TAB PO; +PRED10TA2 PO; +VENTAER INH; +ZYVO1TAB PO
== END ==
LOC: M CLY 13:36
PROVIDERS: ATTEND Physician Assistant
DX: Z53.9 Procedure and treatment not carried out, unspecified reason (principal)

== ENCOUNTER → 2024-08-31 | Outpatient (CLI) | payer BC | LOC: M CLY 13:48 | PROVIDERS: ATTEND Physician Assistant | DX: J15.212 Pneumonia due to Methicillin resistant Staphylococcus aureus (principal) ==

== ENCOUNTER → 2024-09-24 | Outpatient (CLI) | payer BC | LOC: M RAD 12:41 | PROVIDERS: ATTEND Physician Assistant | DX: J15.212 Pneumonia due to Methicillin resistant Staphylococcus aureus (principal); J44.9 Chronic obstructive pulmonary disease, unspecified ==

== ENCOUNTER → 2024-10-08 | Outpatient (CLI) | payer BC | LOC: M PLAIMG 07:38 | PROVIDERS: ATTEND Physician Assistant | DX: R59.0 Localized enlarged lymph nodes (principal) ==

== ENCOUNTER → 2024-12-24 | Outpatient (REF) | payer BC ==
[2024-12-24 19:21] LABS: LIPASE 38 U/L (12-53)
[2024-12-24 19:22] LABS: TESTOSTERONE 300 NG/DL (241-827)
[2024-12-24 19:23] LABS: ALBUMIN 3.7 G/DL (3.2-5.2); ALKALINE PHOSPHATASE 103 U/L (40-129); ALT/SGPT 62 U/L (7.0-40); AST/SGOT 69 U/L (<34); BILIRUBIN,TOTAL 0.4 MG/DL (0.3-1.2); BLOOD UREA NITROGEN 25 MG/DL (9-23); CALCIUM LEVEL 10.1 MG/DL (8.3-10.6); CARBON DIOXIDE LEVEL 27 MMOL/L (20-31); CHLORIDE LEVEL 106 MMOL/L (98-107); CHOLESTEROL LEVEL 145 MG/DL (<200); CHOLESTEROL RISK RATIO 2.43 (<5); GLUCOSE, FASTING 113 MG/DL (74-106); HDL CHOLESTEROL 59.5 MG/DL (>40); LDL CHOLESTEROL 68.7 MG/DL (<100); NON-HDL-C 85.5 MG/DL; POTASSIUM SERUM 5.1 MMOL/L (3.5-5.1); SODIUM LEVEL 143 MMOL/L (136-145); TOTAL PROTEIN 7.3 G/DL (5.7-8.2); TRIGLYCERIDES LEVEL 84 MG/DL (<150)
[2024-12-24 19:32] LABS: HEPATITIS B SURFACE ANTIGEN NEGATIVE (NEGATIVE)
[2024-12-24 19:33] LABS: HEMOGLOBIN A1c 5.4 % (4.0-6.0)
[2024-12-24 19:52] LABS: HEPATITIS B CORE ANTIBODY IGM NEGATIVE (NEGATIVE)
[2024-12-24 19:53] LABS: HEPATITIS C VIRUS ABY INDEX < 0.02 INDEX (<0.8)
== END ==
LOC: M SFHCCLAY 10:38
PROVIDERS: ATTEND Physician Assistant
DX: R59.0 Localized enlarged lymph nodes (principal); R20.2 Paresthesia of skin; E11.9 Type 2 diabetes mellitus without complications; I10 Essential (primary) hypertension; G62.9 Polyneuropathy, unspecified; L40.9 Psoriasis, unspecified; K76.0 Fatty (change of) liver, not elsewhere classified; E29.1 Testicular hypofunction; F17.211 Nicotine dependence, cigarettes, in remission; I11.9 Hypertensive heart disease without heart failure

== ENCOUNTER → 2024-12-24 | Outpatient (REF) | payer BC | LOC: M LABDRAWC 17:59 | PROVIDERS: ATTEND Psychiatry & Neurology Neurology | DX: E53.8 Deficiency of other specified B group vitamins (principal); G62.9 Polyneuropathy, unspecified ==